=== PATIENT | male | born 1990 ===

== ENCOUNTER → 2024-11-03 10:55 | Outpatient (BNVA) | payer MEDICARE, MEDICAID, SELFPAY | PROVIDERS: PCP Nurse Practitioner Family; Visit Provider Nurse Practitioner Family | DX: E55.9 Vitamin D deficiency, unspecified (principal); Z76.89 Persons encountering health services in other specified circumstances; Z79.899 Other long term (current) drug therapy; Z13.6 Encounter for screening for cardiovascular disorders; F20.9 Schizophrenia, unspecified | CPT/HCPCS: 80053; 80061; 81003; 82306; 83036; 84439; 84443; 85025 ==